=== PATIENT | male | born 1980 | race Caucasian/White ===

== ENCOUNTER → 2017-04-05 | Outpatient (CLI) | payer OTHER, BC | LOC: M LAB 13:19 | PROVIDERS: ATTEND Physician Assistant | DX: J02.9 Acute pharyngitis, unspecified (principal) ==

== ENCOUNTER → 2022-10-15 | Outpatient (REF) | payer OTHER | LOC: M LAB REF 13:48 | PROVIDERS: ATTEND Ophthalmology | DX: H02.9 Unspecified disorder of eyelid (principal); L91.8 Other hypertrophic disorders of the skin ==

== ENCOUNTER → 2024-09-07 | Outpatient (CLI) | payer BC, OTHER | LOC: M WUC 08:21 | PROVIDERS: ATTEND Physician Assistant | DX: E29.1 Testicular hypofunction (principal) ==

== ENCOUNTER → 2024-09-25 | Outpatient (CLI) | payer BC, OTHER | LOC: M WUC 08:28 | PROVIDERS: ATTEND Physician Assistant | DX: E29.1 Testicular hypofunction (principal); N40.1 Benign prostatic hyperplasia with lower urinary tract symptoms ==